=== PATIENT | male | born 1955 | race Caucasian/White ===

== ENCOUNTER → 2018-02-15 | Outpatient (CLI) | payer MEDICAID ==
--- NOTE | 2018-02-15 12:55 | EST ---
EXERCISE STRESS DATE OF SERVICE: 02/15/2018 AGE: 62 SEX: Male HT: 73 WT: 265 PROTOCOL: FRANCOIS STAGE: II DURATION OF EXERCISE: 5 minutes HEART RATE REST: BLOOD PRESSURE REST: 138/84 MAXIMUM HEART RATE ACHIEVED: 151 MAXIMUM BLOOD PRESSURE: 212/94 85% MPHR: 135 100% MPHR: 159 METS: 6.8 INDICATIONS: Abnormal EKG, hypertension. CLINICAL INFORMATION: Baseline EKG revealed normal sinus rhythm without significant ST-T changes. There was some poor R-wave progression over precordial leads. Patient walked for 5 minutes on standard Francois protocol. Maximal heart rate of 151 beats per minute. Patient did not have any angina or arrhythmia. He had hypertensive response to exercise with a peak pressure of 212/94 and resting pressure 138/84. EKG did not reveal any ST-segment changes to indicate ischemia. There was no arrhythmia or angina. By EKG criteria, this is a negative stress test with limited exercise capacity. Hypertensive response to exercise was noted but there was no evidence to suggest any ischemia on this stress test. MMLURDESL / COLLINN: [id number] /
== END | disposition home or self-care (01) ==
LOC: RADNMMAIN 11:04
PROVIDERS: ATTEND Internal Medicine Cardiovascular Disease
DX: R94.31 Abnormal electrocardiogram [ECG] [EKG] (principal); I10 Essential (primary) hypertension; I48.91 Unspecified atrial fibrillation
CPT/HCPCS: 93017

== ENCOUNTER → 2018-06-08 | Outpatient (CLI) | payer MEDICAID ==
[2018-06-08 11:07] LABS: HCT 44.1 % (39.0-53.0); HGB 14.9 gm/dL (13.0-17.5); MCH 31.2 pg (25.0-35.0); MCHC 33.9 g/dL (31.0-37.0); MCV 92.2 fL (80.0-100.0); Mean Platelet Volume 6.6; Platelet Count 166 k/uL (150-450); RBC 4.79 m/uL (4.30-5.90); RDW 12.4 % (11.5-15.5)
[2018-06-08 11:21] LABS: Albumin 4.1 g/dL (3.5-5.0); Calcium 9.3 mg/dL (8.4-10.2); Potassium 4.7 mmol/L (3.5-5.1); Total Bilirubin 1.8 mg/dL (0.2-1.3); Total Protein 6.7 g/dL (6.3-8.2)
[2018-06-08 11:34] LABS: Appearance,Urine Clear (Clear); Bilirubin,Urine Negative (Negative); Blood,Urine Negative (Negative); Color,Urine Light Yellow; Glucose,Urine (UA) Negative (Negative); Ketones,Urine Negative (Negative); Leukocyte Esterase,Urine Negative (Negative); Nitrite,Urine Negative (Negative); PH, Urine 6.5 (5.0-8.0); Protein,Urine Negative (Negative); Specific Gravity,Urine 1.008 (1.001-1.035); Urobilinogen,Urine <2.0 mg/dL (<2.0)
[2018-06-08 11:51] LABS: Prostate Specific Antigen 1.58 ng/mL (0.00-4.00)
== END ==
LOC: LABWHC1 09:58
PROVIDERS: ATTEND Family Medicine
DX: R03.0 Elevated blood-pressure reading, without diagnosis of hypertension (principal)
CPT/HCPCS: 36415; 80053; 80061; 81003; 84153; 84439; 84443; 85027

== ENCOUNTER → 2019-06-26 | Outpatient (CLI) | payer MEDICAID ==
[2019-06-26 17:01] LABS: Hemoglobin A1C 5.1 % (4.0-6.0)
[2019-06-26 19:20] LABS: Chol/HDL Ratio 3.21; LDL Cholesterol,Calculated 86.2 mg/dL (0.0-131.0); VLDL Calculation 19.8 mg/dL (5.00-40.00)
== END | disposition home or self-care (01) ==
LOC: LABWHC1 09:13
PROVIDERS: ATTEND Internal Medicine Clinical Cardiac Electrophysiology
DX: I10 Essential (primary) hypertension (principal); E78.5 Hyperlipidemia, unspecified
CPT/HCPCS: 36415; 80061; 83036

== ENCOUNTER → 2019-06-30 | Outpatient (CLI) | payer MEDICAID ==
--- NOTE | 2019-07-01 15:01 | ECHOF ---
Referral Reason:I10 Essential (primary) hypertension MEASUREMENTS -------- HEIGHT: 185.4 cm WEIGHT: 117.9 kg BP: 152/82 IVSd: 2.1 cm (0.6 - 1.1) LVIDd: 5.4 cm (3.9 - 5.3) LVPWd: 1.8 cm (0.6 - 1.1) IVSs: 2.4 cm LVIDs: 3.7 cm LVPWs: 2.0 cm LA Diam: 3.8 cm (2.7 - 3.8) RVIDd: 3.4 cm (< 3.3) LAESV Index (A-L): 36.27 ml/m Ao Diam: 4.8 cm (2.0 - 3.7) AV Cusp: 2.5 cm (1.5 - 2.6) EPSS: 1.3 cm MV E Cayetano: 0.58 m/s MV DecT: 279 ms MV A Cayetano: 0.61 m/s MV E/A Ratio: 0.96 AV maxP.99 mmHg AV meanP.17 mmHg AR PHT: 887 ms MV EF SLOPE: 55.58 mm/s (70 - 150) MV EXCURSION: 9.07 mm (> 18.000) TAPSE: 20.52 mm FINDINGS -------- Sinus rhythm. This was a technically difficult study with suboptimal views. The left ventricular size is normal. There is severe concentric left ventricular hypertrophy. Ove rall left ventricular systolic function is normal with, an EF between 60 - 65 %. The right ventricle is mildly enlarged. LA is moderately dilated 34-39 ml/m2 The right atrium is normal in size. 5 ml of Lumason was utilized for enhancement of images. The aortic valve is bicuspid. There is zsdadilc-uc-zemlcp aortic regurgitation. Peak/mean gradien t across the Aortic Valve is 7.99mmHg / 4.17mmHg. Mild mitral annular calcification present. The tricuspid valve was not well visualized. The pulmonic valve was not well visualized. 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 Normal inferior vena cava with normal inspiratory collapse consistent with estimated right atrial pre ssure of 5 mmHg. There is no pericardial effusion. CONCLUSIONS -------- 1. Sinus rhythm. 2. This was a technically difficult study with suboptimal views. 3. The left ventricular size is normal. 4. There is severe concentric left ventricular hypertrophy. 5. Overall left ventricular systolic function is normal with, an EF between 60 - 65 %. 6. The right ventricle is mildly enlarged. 7. LA is moderately dilated 34-39 ml/m2 8. The right atrium is normal in size. 9. 5 ml of Lumason was utilized for enhancement of images. 10. The aortic valve is bicuspid. 11. There is imxydztd-ub-bkpypd aortic regurgitation. 12. Peak/mean gradient across the Aortic Valve is 7.99mmHg / 4.17mmHg. 13. Mild mitral annular calcification present. 14. The tricuspid valve was not well visualized. 15. The pulmonic valve was not well visualized. 16. 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 17. Normal inferior vena cava with normal inspiratory collapse consistent with estimated right atrial pressure of 5 mmHg. 18. There is no pericardial effusion. CAREER LAW CLERK: Amalia Villanueva RDCS
== END | disposition home or self-care (01) ==
LOC: RADECHMAIN 13:39
PROVIDERS: ATTEND Internal Medicine Clinical Cardiac Electrophysiology
DX: I10 Essential (primary) hypertension (principal); Q23.1 Congenital insufficiency of aortic valve
CPT/HCPCS: 93306; Q9950

== ENCOUNTER → 2019-08-07 | Outpatient (CLI) | payer MEDICAID ==
--- NOTE | 2019-08-08 09:24 | CT ---
EXAMINATION TYPE: CT angio thor/abd pel aorta DATE OF EXAM: 08/07/2019 COMPARISON: HISTORY: Thoracic aortic aneurysm w/out rupture. CT DLP: 989.30 mGycm CONTRAST: CTA thoracic and abdominal aorta with 3-D reconstruction is performed and with IV Contrast, patient i njected with 100 mL of Isovue 370. Contrast CTA of the thoracic and abdominal aorta was performed from the lung apex through the base of the pelvis. 3-D reconstruction imaging obtained at a separate workstation. CT Chest: THORACIC AORTA: Ascending thoracic aorta is aneurysmal and measures 4.6 cm. No dissection or mediasti nal hematoma. Mild atheromatous changes are seen. LUNGS: The lungs are clear and free of infiltrate or atelectasis. No pulmonary nodule or mass is det ected. No pleural effusion or CT evidence of interstitial lung disease. MEDIASTINUM: The heart is not enlarged. No evidence for mediastinal mass or adenopathy. HILAR STRUCTURES: No evidence for mass. No hilar adenopathy is appreciated. OTHER: No significant abnormality. CONTRAST CT ABDOMEN AND PELVIS ABDOMENAL AORTA: No evidence for abdominal aortic aneurysm. No dissection. Iliac vessels are symmet fifi and patent. LIVER/GB- No significant abnormality is seen. PANCREAS- No significant abnormality is seen. SPLEEN- No significant abnormality is seen. ADRENALS- No significant abnormality is seen. KIDNEYS/BLADDER- No significant abnormality is seen. BOWEL- No Significant abnormality GENITAL ORGANS: No gross abnormality seen. LYMPH NODES- No greater than 1cm abdominal or pelvic lymph nodes areappreciated. OSSEOUS STRUCTURES- No significant abnormality is seen. OTHER- No significant abnormality is seen. IMPRESSION- Uncomplicated ascending thoracic aortic aneurysm noted.
== END | disposition home or self-care (01) ==
LOC: RADCTMAIN 15:55
PROVIDERS: ATTEND Internal Medicine Clinical Cardiac Electrophysiology
DX: I71.2 Thoracic aortic aneurysm, without rupture (principal); I10 Essential (primary) hypertension; I51.7 Cardiomegaly; I47.9 Paroxysmal tachycardia, unspecified
CPT/HCPCS: 71275; 74174; Q9967

== ENCOUNTER 2019-09-22 09:07 | Day surgery (SDC) | payer MEDICAID ==
[2019-09-18 15:43] VITALS: BMI 33.0
[~2019-09-22 09:07] MED LIST: ALPRAZolam 0.25 MG TAB PO PRN; ALPRAZolam 0.5 MG TAB PO PRN; ASPIRIN 325 MG TAB PO STA; NITROGLYCERIN SL TABS 0.4 MG TAB SUBLINGUAL PRN; SODIUM CHLORIDE 0.9% 1,000 ML in EMPTY BAG 1 BAG IV ONE
[2019-09-22 09:47] VITALS: RESP 16; TEMP 97.8
[2019-09-22] MEDS ORDERED: SODIUM CHLORIDE 0.9% 1,000 ML IV ONE (09:47)
[2019-09-22 09:58] LABS: Basophils % (A) 0 %; Eosinophils # (A) 0.1 k/uL (0-0.7); Eosinophils % (A) 2 %; HCT 46.3 % (39.0-53.0); HGB 15.6 gm/dL (13.0-17.5); Lymphocytes # (A) 1.1 k/uL (1.0-4.8); Lymphocytes % (A) 14 %; MCH 31.4 pg (25.0-35.0); MCHC 33.8 g/dL (31.0-37.0); MCV 92.9 fL (80.0-100.0); Mean Platelet Volume 7.4; Monocytes # (A) 0.4 k/uL (0-1.0); Monocytes % (A) 5 %; Neutrophils % (A) 78 %; Platelet Count 158 k/uL (150-450); RBC 4.98 m/uL (4.30-5.90); RDW 12.2 % (11.5-15.5); WBC 7.7 k/uL (3.8-10.6)
[2019-09-22 10:18] LABS: Calcium 9.2 mg/dL (8.4-10.2); Potassium 4.3 mmol/L (3.5-5.1)
[2019-09-22] MEDS ORDERED: MIDAZOLAM 2 MG/2 ML VIAL IV ONE (11:54)
[2019-09-22] MEDS ORDERED: LIDOCAINE 1% INJ 10MG/ML (20 ML MDV) SQ ONE (11:58)
[2019-09-22] MEDS ORDERED: VERAPAMIL SYRINGE (5 MG/10 ML) INTRAARTER ONE ×2 (12:03→12:14)
[2019-09-22] MEDS ORDERED: IOPAMIDOL-370 125ML BTL INJ ONE (12:14)
[2019-09-22] MEDS ORDERED: RX INFO: IV CONTRAST WAS GIVEN 1 EACH MISC MISCELLANE PRN (12:28)
[2019-09-22] MEDS ORDERED: SODIUM CHLORIDE 0.9% 1,000 ML IV SCH (12:30)
--- NOTE | 2019-09-22 14:44 | CC ---
CARDIAC CATHETERIZATION REPORT 09/22/2019 PERFORMING PHYSICIAN: Stephen Veras MD. PROCEDURE PERFORMED: 1. Selective right and left coronary angiogram. 2. An aortic root angiogram. INDICATION: This is a 64-year-old gentleman who sees Dr. Andujar in the office as an outpatient with history of smoking as well as hypertension who was diagnosed recently with artery aortic aneurysm. The aneurysm is involving the ascending aorta. He underwent a CT scan and that confirmed the aneurysm. Subsequently, the patient was evaluated to be seen at the [address] for possible thoracic aortic surgery. The heart catheterization is to assess for coronary artery disease. Right radial artery. None. I want to take the heart catheterization is to assess for coronary artery disease. APPROACH: Right radial artery. COMPLICATION: None. LEVEL OF SEDATION: Moderate with sedation length of 17 minutes. PROCEDURE DESCRIPTION: After obtaining an informed consent, the patient brought to the cardiac wheelabrator operator. The right radial artery was cannulated using micropuncture technique and a micropuncture wire passed easily, then I placed a 6-Japanese sheath 11 cm at the right radial artery. After that, I gave the patient 2 mg of verapamil IA and 10,000 units of heparin IV. Subsequently, I did selective right and left coronary angiogram with JR4 and JL4 catheters. Left heart catheterization was not performed, but aortic root angiogram was performed using a 6-Japanese pigtail catheter. The procedure was completed without any complication. SELECTIVE CORONARY ANGIOGRAM: 1. The right coronary artery is a large caliber vessel and it is a dominant vessel. The right coronary artery appeared to be angiographically normal. Distally bifurcates into PDA and PLV branches, both appeared to be angiographically normal. 2. The left main is angiographically normal. It bifurcates into left circumflex and left anterior descending artery. 3. The left circumflex, ramus intermedius, and left anterior descending artery. The left circumflex is a large caliber vessel, it is a nondominant vessel and appeared to be angiographically normal. In the very proximal to midportion gives rise into a large OM branch which bifurcates into 2 subbranches and OM branch appeared to be angiographically normal. The circumflex continues after that as a medium caliber vessel in the AV groove and gives rise into a second OM branch which seems to be angiographically normal. 4. The ramus intermedius appeared to be angiographically normal. 5. The LAD, the proximal LAD appeared to be angiographically normal. The proximal to mid LAD by the bifurcation of a diagonal branch, appeared to have a lesion in the range of 20%-30%. First diagonal branch appeared to be angiographically normal and the LAD after that continued to be angiographically normal. 6. Aortic root angiogram. The aortic root angiogram was performed in the AGUSTIN projection and using a power injection. The aortic root appeared to be dilated. CONCLUSION: 1. Mild nonobstructive coronary artery disease involving the proximal to mid LAD. The plaque appeared to be in the range of 20% to 30% only. 2. Ascending aortic aneurysm was identified. 3. One to 2+ aortic insufficiency. POSTPROCEDURE MANAGEMENT: 1. Maximize medical treatment. 2. The patient is going to be seen by a thoracic surgeon at the [facility]. 3. Follow up with the patient. MMMALIK / JESSICA: [id number] /
[2019-09-22 19:10] VITALS: BP 114/59; PULSE 72
== END 2019-09-22 17:41 | disposition home or self-care (01) ==
LOC: CATHCVL 09:07
PROVIDERS: ATTEND Internal Medicine Interventional Cardiology
DX: I25.10 Atherosclerotic heart disease of native coronary artery without angina pectoris (principal); I35.1 Nonrheumatic aortic (valve) insufficiency; I71.2 Thoracic aortic aneurysm, without rupture; I11.9 Hypertensive heart disease without heart failure; I47.1 Supraventricular tachycardia; E78.5 Hyperlipidemia, unspecified; Z79.82 Long term (current) use of aspirin; Z79.899 Other long term (current) drug therapy
CPT/HCPCS: 93454; 93567; 80048; 85025; C1769; C1894; J2250; J2001; J1644; Q9967